=== PATIENT | female | born 1985 | race African-American/Black ===

== ENCOUNTER 2016-06-18 16:21 | Emergency (ER) | payer MEDICAID | END 2016-06-18 19:52 | disposition home or self-care (01) | LOC: D.ER 16:21 | DX: M54.5 Low back pain (principal); M54.30 Sciatica, unspecified side; M54.10 Radiculopathy, site unspecified; F17.200 Nicotine dependence, unspecified, uncomplicated ==

== ENCOUNTER 2016-11-09 00:16 | Emergency (ER) | payer MEDICAID | END 2016-11-09 01:31 | disposition home or self-care (01) | LOC: D.ER 00:16 | DX: K08.89 Other specified disorders of teeth and supporting structures (principal); R51 Headache ==

== ENCOUNTER 2017-01-02 19:36 | Emergency (ER) | payer MEDICAID | END 2017-01-02 21:55 | disposition left against medical advice (07) | LOC: D.ER 19:36 | DX: R05 Cough (principal) ==

== ENCOUNTER 2017-02-21 16:26 | Emergency (ER) | payer MEDICAID | END 2017-02-21 18:10 | disposition home or self-care (01) | LOC: D.ER 16:26 | DX: F41.9 Anxiety disorder, unspecified (principal); F17.200 Nicotine dependence, unspecified, uncomplicated ==

== ENCOUNTER 2018-07-06 09:21 | Emergency (ER) | payer MEDICAID ==
[~2018-07-06] VITALS: Ht 175.3 cm; Wt 81.8 kg
[2018-07-06 09:27] VITALS: Ht 175.3 cm; Wt 81.8 kg
[2018-07-06 09:55] LABS: BASOPHILS 0.2 % (0-2); EOSINOPHILS 6.4 % (0-7); HEMATOCRIT 41.1 % (36.0-48.0); LYMPHOCYTES 49.9 % (15-50); MCH 32.3 pg (26.0-34.0); MCHC 34.1 g/dL (31.0-37.0); MCV 94.7 fL (80.0-100.0); MEAN PLATELET VOLUME 8.6 fL (7.4-10.4); MONOCYTES 7.6 % (2-11); NEUTROPHILS 35.9 % (40-80); PLATELET COUNT 188 10x3/uL (130-400); RBC 4.34 10x6/uL (4.00-5.40)
[2018-07-06] MEDS ORDERED: PROTONIX40 MG PO (09:58)
[2018-07-06 10:11] LABS: APPEARANCE CLEAR (CLEAR); BILIRUBIN NEGATIVE (NEGATIVE); COLOR STRAW (YELLOW); GLUCOSE NEGATIVE (NEGATIVE); KETONE NEGATIVE (NEGATIVE); NITRITE NEGATIVE (NEGATIVE); PROTEIN NEGATIVE (NEGATIVE); SPECIFIC GRAVITY 1.025 (1.005-1.020); UROBILINOGEN NORMAL (NORMAL)
[2018-07-06 10:12] LABS: BACTERIA FEW /hpf (NONE SEEN); EPITHELIAL CELLS 0-5 /hpf (0-5); RED CELLS - URINE 0-5 /hpf (0-5); WHITE CELLS - URINE 0-5 /hpf (0-5)
[2018-07-06 10:13] LABS: ALBUMIN 3.4 g/dL (3.4-5.0); ALKALINE PHOSPHATASE 61 U/L (46-116); ALT (SGPT) 21 U/L (10-68); AMYLASE - SERUM 44 U/L (25-115); BILIRUBIN - TOTAL 0.23 mg/dL (0.2-1.3); CALC OSMOLALITY 280 mosm/kg (275-300); CALCIUM 8.5 mg/dL (8.5-10.1); CARBON DIOXIDE 27.4 mmol/L (21.0-32.0); CHLORIDE - SERUM 107 mmol/L (98-107); CREATININE - SERUM 0.8 mg/dL (0.6-1.3); GLUCOSE 75 mg/dL (74-106); LIPASE 81 U/L (73-393); POTASSIUM - SERUM 3.6 mmol/L (3.5-5.1); PROTEIN - SERUM 7.4 g/dL (6.4-8.2); SODIUM 142 mmol/L (136-145); UREA NITROGEN 10 mg/dL (7-18); eGFR NON AFRICAN AMERICAN 86 mL/min (90-120)
[2018-07-06 11:40] VITALS: BP 128/75
== END 2018-07-06 11:43 | disposition home or self-care (01) ==
LOC: D.ER 09:21
PROVIDERS: Emergency Medicine
DX: K27.9 Peptic ulcer, site unspecified, unspecified as acute or chronic, without hemorrhage or perforation (principal)

== ENCOUNTER 2018-11-25 22:03 | Emergency (ER) | payer MEDICAID ==
[~2018-11-25] VITALS: Ht 175.3 cm; Wt 81.8 kg
[~2018-11-25 22:03] MED LIST: PROTONIX40 MG PO
[2018-11-25 22:14] VITALS: Ht 175.3 cm; Wt 81.8 kg
[2018-11-25] MEDS ORDERED: HYDROCODON-ACE1 EAC7 PO (22:57)
[2018-11-26 00:15] VITALS: BP 121/78
== END 2018-11-26 00:15 | disposition home or self-care (01) ==
LOC: D.ER 22:03
DX: M62.012 Separation of muscle (nontraumatic), left shoulder (principal); S39.012A Strain of muscle, fascia and tendon of lower back, initial encounter; V43.52XA Car driver injured in collision with other type car in traffic accident, initial encounter; Y93.89 Activity, other specified; Y92.410 Unspecified street and highway as the place of occurrence of the external cause

== ENCOUNTER 2019-10-30 19:13 | Emergency (ER) | payer MEDICAID ==
[~2019-10-30] VITALS: Ht 175.3 cm; Wt 83.9 kg
[~2019-10-30 19:13] MED LIST changes: +HYDROCODON-ACE1 EAC7 PO
[2019-10-30 19:15] VITALS: Ht 175.3 cm; Wt 83.9 kg
[2019-10-30 19:47] LABS: HEMATOCRIT 42.9 % (36.0-48.0); HEMOGLOBIN 14.3 g/dL (12-16); LYMPHOCYTES 13.1 % (15-50); MCH 31.5 pg (26.0-34.0); MCHC 33.3 g/dL (31.0-37.0); MCV 94.5 fL (80.0-100.0); MEAN PLATELET VOLUME 8.1 fL (7.4-10.4); NEUTROPHILS 78.9 % (40-80); RBC 4.54 10x6/uL (4.00-5.40); WBC 10.6 10x3/uL (4.8-10.8)
[2019-10-30 19:49] LABS: PLATELET COUNT 258 10x3/uL (130-400)
[2019-10-30 19:56] LABS: CALC OSMOLALITY 272 mosm/kg (275-300); CALCIUM 9.3 mg/dL (8.5-10.1); CARBON DIOXIDE 23.9 mmol/L (21.0-32.0); CHLORIDE - SERUM 103 mmol/L (98-107); CREATININE - SERUM 0.8 mg/dL (0.6-1.3); POTASSIUM - SERUM 3.4 mmol/L (3.5-5.1); SODIUM 137 mmol/L (136-145); UREA NITROGEN 8 mg/dL (7-18); eGFR NON AFRICAN AMERICAN 86 mL/min (90-120)
[2019-10-30 19:57] LABS: BACTERIA MANY /hpf (NEGATIVE); BILIRUBIN NEGATIVE (NEGATIVE); EPITHELIAL CELLS 0-5 /hpf (0-5); GLUCOSE NEGATIVE (NEGATIVE); HCG URINE NEGATIVE (NEGATIVE); KETONE MODERATE mg/dL (NEGATIVE); NITRITE POSITIVE (NEGATIVE); SPECIFIC GRAVITY 1.015 (1.005-1.020); UROBILINOGEN NORMAL (NORMAL); WHITE CELLS - URINE >50 /hpf (NEGATIVE)
[2019-10-30 19:58] LABS: GLUCOSE 114 mg/dL (74-106)
[2019-10-30 20:05] LABS: ALBUMIN 3.8 g/dL (3.4-5.0); ALKALINE PHOSPHATASE 77 U/L (30-120); ALT (SGPT) 18 U/L (10-68); AMYLASE - SERUM 187 U/L (25-115); BILIRUBIN - TOTAL 0.67 mg/dL (0.2-1.3); LIPASE 393 U/L (73-393); PROTEIN - SERUM 8.1 g/dL (6.4-8.2); TROPONIN-I < 0.017 ng/mL (0.000-0.060)
[2019-10-30] MEDS ORDERED: BACTRIM DS TAB1 EAC1 PO (21:09)
[2019-10-30] MEDS ORDERED: DICLOFENAC SODI50 MG PO (21:09)
[2019-10-30 22:37] VITALS: BP 130/90
== END 2019-10-30 21:50 | disposition home or self-care (01) ==
LOC: D.ER 19:13
PROVIDERS: Emergency Medicine
DX: N39.0 Urinary tract infection, site not specified (principal); R11.0 Nausea; R10.32 Left lower quadrant pain

== ENCOUNTER 2019-11-04 22:37 | Emergency (ER) | payer MEDICAID ==
[~2019-11-04] VITALS: Ht 175.3 cm; Wt 84.1 kg
[~2019-11-04 22:37] MED LIST changes: +BACTRIM DS TAB1 EAC1 PO; +DICLOFENAC SODI50 MG PO
[2019-11-04 22:38] VITALS: BP 106/64; Ht 175.3 cm; Wt 84.1 kg
[2019-11-05 00:10] LABS: HEMATOCRIT 37.9 % (36.0-48.0); HEMOGLOBIN 12.7 g/dL (12-16); LYMPHOCYTES 32.9 % (15-50); MCH 31.6 pg (26.0-34.0); MCHC 33.5 g/dL (31.0-37.0); MCV 94.3 fL (80.0-100.0); MEAN PLATELET VOLUME 7.8 fL (7.4-10.4); PLATELET COUNT 306 10x3/uL (130-400); RBC 4.02 10x6/uL (4.00-5.40); RDW 13.1 % (11.5-14.5); WBC 8.7 10x3/uL (4.8-10.8)
[2019-11-05 00:16] LABS: CALC OSMOLALITY 268 mosm/kg (275-300); CALCIUM 8.7 mg/dL (8.5-10.1); CARBON DIOXIDE 24.8 mmol/L (21.0-32.0); CHLORIDE - SERUM 102 mmol/L (98-107); CREATININE - SERUM 0.9 mg/dL (0.6-1.3); GLUCOSE 88 mg/dL (74-106); POTASSIUM - SERUM 3.7 mmol/L (3.5-5.1); SODIUM 136 mmol/L (136-145); UREA NITROGEN 8 mg/dL (7-18); eGFR NON AFRICAN AMERICAN 75 mL/min (90-120)
[2019-11-05 00:28] LABS: ALBUMIN 2.9 g/dL (3.4-5.0); ALKALINE PHOSPHATASE 69 U/L (30-120); ALT (SGPT) 15 U/L (10-68); AMYLASE - SERUM 51 U/L (25-115); BILIRUBIN - TOTAL 0.23 mg/dL (0.2-1.3); LIPASE 78 U/L (73-393); PROTEIN - SERUM 7.3 g/dL (6.4-8.2)
[2019-11-05 00:40] LABS: HCG SERUM NEGATIVE (NEGATIVE)
[2019-11-05 00:41] LABS: TROPONIN-I < 0.017 ng/mL (0.000-0.060)
== END 2019-11-05 02:03 | disposition home or self-care (01) ==
LOC: D.ER 22:37
PROVIDERS: Emergency Medicine
DX: K59.00 Constipation, unspecified (principal); R10.32 Left lower quadrant pain

== ENCOUNTER 2020-01-02 10:38 | Emergency (ER) | payer MEDICAID ==
[~2020-01-02] VITALS: Ht 175.3 cm; Wt 78.9 kg
[2020-01-02 10:49] VITALS: BP 142/95; Ht 175.3 cm; Wt 78.9 kg
[2020-01-02] MEDS ORDERED: AMOXICILLIN500 M1 PO (11:00)
[2020-01-02] MEDS ORDERED: NAPROSYN500 MG PO (11:00)
== END 2020-01-02 11:09 | disposition home or self-care (01) ==
LOC: D.ER 10:38
DX: K02.9 Dental caries, unspecified (principal); K08.89 Other specified disorders of teeth and supporting structures; Z72.0 Tobacco use

== ENCOUNTER 2020-01-29 12:56 | Emergency (ER) | payer MEDICAID ==
[~2020-01-29] VITALS: Ht 175.3 cm; Wt 81.8 kg
[~2020-01-29 12:56] MED LIST changes: +AMOXICILLIN500 M1 PO; +NAPROSYN500 MG PO
[2020-01-29 13:03] VITALS: Ht 175.3 cm; Wt 81.8 kg
[2020-01-29 14:26] LABS: BACTERIA FEW HPF (NONE SEEN); BILIRUBIN NEGATIVE (NEGATIVE); EPITHELIAL CELLS 0-5 /hpf (0-5); KETONE NEGATIVE (NEGATIVE); NITRITE NEGATIVE (NEGATIVE); UROBILINOGEN NORMAL mg/dL (< 2)
[2020-01-29] MEDS ORDERED: MACROBID100 MG PO (15:13)
[2020-01-29] MEDS ORDERED: BACLOFEN20 M1 PO (15:13)
[2020-01-29] MEDS ORDERED: VOLTAREN75 MG PO (15:13)
[2020-01-29 16:25] VITALS: BP 138/86
== END 2020-01-29 16:25 | disposition home or self-care (01) ==
LOC: D.ER 12:56
PROVIDERS: Family Medicine
DX: M54.5 Low back pain (principal); M79.18 Myalgia, other site; N39.0 Urinary tract infection, site not specified